=== PATIENT | female | born 1945 | race Caucasian/White ===

== ENCOUNTER 2018-08-27 15:43 | Observation (INO) ==
--- NOTE | 2018-08-27 11:32 | EKG Report ---
Test Performed on : 08/27/2018 11:23:50 AM Test Reason : WEAKNESS Blood Pressure : / mmHG Vent. Rate : 084 BPM Atrial Rate : 084 BPM P-R Int : 158 ms QRS Dur : 068 ms QT Int : 394 ms P-R-T Axes : 023 -24 010 degrees QTc Int : 465 ms Normal sinus rhythm. Nonspecific ST and T wave abnormality Abnormal ECG When compared with ECG of 12-AUG-2017 16:55, QT has shortened Unconfirmed Result
[2018-08-27 11:46] LABS: BASO# 0.03 X1000 (0.0-0.2); BASO% 0.4 % (0.0-0.8); EOS# 0.23 X1000 (0.0-0.7); EOS% 2.7 % (0.0-10.0); HEMATOCRIT 41.8 % (37.0-47.0); HEMOGLOBIN 13.7 g/dL (12.0-16.0); IMM GRAN# 0.02 X1000 (0.0-0.04); IMM GRAN% 0.2 % (0.0-0.5); LYMPH% 35.7 % (20.5-51.1); MCH 29.1 PG (27-31); MCHC 32.8 g/dL (33-37); MCV 88.7 FL (81-99); MONO# 0.56 X1000 (0.11-0.59); MONO% 6.7 % (1.7-9.3); MPV 9.7 FL (7.4-10.4); NEUT# 4.56 X1000 (1.4-6.5); NEUT% 54.3 % (42.2-75.2); PLT 272 X1000 (130-400); RBC 4.71 XMIL (4.2-5.4); RDW 13.8 % (11.5-14.5)
[2018-08-27 11:54] LABS: INR 0.96; PROTIME 13.6 Seconds (11.0-16.0)
[2018-08-27 11:55] LABS: PTT 25.4 Seconds (22.3-41.8)
[2018-08-27 12:01] LABS: AGAP 13; ALB/GLOB RATIO 1.5; ALBUMIN 4.3 g/dL (3.5-5.0); ALKALINE PHOSPHATASE 99 U/L (32-104); BUN 13 mg/dL (8-22); CALCIUM 9.4 mg/dL (8.8-10.2); CHLORIDE 100 mmol/L (98-107); CK PROFILE 42 U/L (24-173); COSMO 281; CREATININE 0.8 mg/dL (0.5-0.9); ESTIMATED GFR > 60; GLUCOSE 154 mg/dL (70-104); GOT 36 U/L (10-30); GPT 40 U/L (10-36); POTASSIUM 4.7 mmol/L (3.5-5.1); SODIUM 139 mmol/L (136-145); TCO2 26 mmol/L (25-35); TOTAL BILIRUBIN 0.38 mg/dL (0.20-1.00); TOTAL PROTEIN 7.1 g/dL (6.3-8.3)
--- NOTE | 2018-08-27 12:08 | Diag Imaging Result Doc PS360 ---
EXAM: CHEST-PORTABLE 08/27/2018 HISTORY: WEAKNESS TECHNIQUE: AP portable at 1207 COMMENT: There is no evidence of acute cardiac or pulmonary disease and compared to 05/06/2018 there has been no significant change. IMPRESSION: Stable chest. Electronically signed by Norris Gallardo 08/27/2018 12:05 PM
--- NOTE | 2018-08-27 12:09 | Diag Imaging Result Doc PS360 ---
CT HEAD W/O CONTRAST - 08/27/2018 INDICATION: Head injury COMPARISON: 09/29/2014 FINDINGS: There is stable trace periventricular white matter chronic microvascular disease. The ventricles and sulci are normal in size and contour. No intracranial mass or hemorrhage. The skull is intact. The sinuses mastoids and middle ears are clear. IMPRESSION: No acute disease or change from prior. This exam was performed using automated exposure control, adjustment of mA or kV according to patient size, and/or use of iterative reconstruction technique Electronically signed by Germain Bledsoe 08/27/2018 12:07 PM
[2018-08-27 12:18] LABS: URINE SOURCE CLEAN CATCH
[2018-08-27 12:21] LABS: BILIRUBIN URINE NEGATIVE (NEGATIVE); BLOOD URINE SMALL (NEGATIVE); COLOR YELLOW; GLUCOSE URINE NEGATIVE (NEGATIVE); KETONE URINE TRACE mg/dL (NEGATIVE); LEUKOCYTES URINE LARGE (NEGATIVE); NITRITE URINE NEGATIVE (NEGATIVE); PH URINE 5.5; PROTEIN URINE 50 mg/dL (NEGATIVE); SP GRAVITY URINE 1.028; TURBIDITY URINE HAZY (CLEAR); UROBILINOGEN URINE NORMAL (NORMAL)
[2018-08-27 12:23] LABS: UR EPITHELIAL CELLS <10 /HPF (<10); URINE BACTERIA 2+ /HPF; URINE WBC TNTC /HPF (<10)
--- NOTE | 2018-08-27 14:00 | PROVIDER DOCUMENTATION ---
This chart was entered by Mile Soto Scribe, acting as scribe for Lyndon Centeno MD. HPI-General Adult - General Chief Complaint: Weakness Stated Complaint: STROKE-LIKE SYMPTOMS Time Seen by Provider: 08/27/18 11:36 Source: patient, family () Allergies/Adverse Reactions: Patient Allergies Allergy/AdvReac Type Severity Reaction Status Date / Time Antihistamines - Alkylamine Allergy Mild FLUSHING Verified 08/27/18 13:52 codeine [Codeine] Allergy Mild Unknown Verified 08/27/18 13:52 Home Medications: Home Medication List Medication Instructions Recorded Confirmed Last Taken Type Nitroglycerin S.l. [Nitroglycerin] 0.3 mg SL PRN PRN 10/02/12 08/12/17 3 Months Ago History ~05/12/17 ENALApril [Vasotec] 10 mg PO BID #60 tablet 01/24/17 08/12/17 08/12/17 Rx Ergocalciferol (Vitamin D2) 50,000 unit PO Q7D #4 capsule 01/24/17 08/12/17 Unknown Rx [Vitamin D] SIMVAstatin [Zocor] 40 mg PO QHS #30 tablet 01/24/17 08/12/17 1 Day Ago Rx ~08/11/17 Aripiprazole [Abilify] 5 mg PO QAM 08/12/17 08/12/17 08/12/17 History Gabapentin [Neurontin] 300 mg PO TID 08/12/17 08/12/17 08/12/17 History Ibuprofen 800 mg PO BID PRN 08/12/17 08/12/17 08/12/17 History Losartan [Cozaar] 50 mg PO DAILY 08/12/17 08/12/17 08/12/17 History Metformin E.r. [Glucophage Xr] 850 mg PO BID 08/12/17 08/12/17 08/12/17 History Metoprolol [Lopressor] 25 mg PO DAILY 08/12/17 08/12/17 08/12/17 History Pantoprazole [Protonix] 40 mg PO DAILY@0700 08/12/17 08/12/17 08/12/17 History Prazosin [Minipress] 1 mg PO QHS 08/12/17 08/12/17 08/11/17 History Sulfamethoxazole/Trimethoprim 1 each PO BID 08/12/17 08/12/17 08/12/17 History [Bactrim Ds Tablet] - History of Present Illness -Gen Adult Nature of Presenting Problems: 71 yom presents to the ed with 2 days of weakness per pt and family. pt sts rt side is weak. pt is a/o x3 on exam. pt is out of TPA window de to time of cva onset 2 days prior Location of Pain/Injury: reports: upper extremity (weakness), lower extremity ( weakness) Quality of Pain: reports: none Onset/Duration: reports: 2 days ago Timing: reports: still present Context/Activities at Onset: reports: light activity Modifying Factors: improves with: nothing Associated Symptoms: reports: fatigue, genitourinary problems (dysuria), weakness (rt side). denies: back/neck pain, chest pain, diaphoresis, diarrhea, dizziness, fever/chills, headaches, nausea, shortness of breath, syncope, vomiting, trouble walking Similar Symptoms Previously?: No Recently seen or treated by another doctor?: No Review of Systems - Adult - REVIEW OF SYSTEMS - ADULT Constitutional: reports: fatique. denies: chills, fever Eyes: reports: no symptoms reported Ears, Nose, Mouth & Throat: reports: no symptoms reported Cardiovascular: denies: chest pain, palpitations Respiratory: denies: cough, shortness of breath, wheezing Gastrointestinal: denies: abdominal pain, diarrhea, nausea, vomiting Genitourinary: reports: see HPI, dysuria, frequent UTI's. denies: flank pain Musculoskeletal: reports: see HPI, muscle weakness Integumentary: reports: no symptoms reported Neurological: reports: see HPI, numbness (rt hand). denies: ataxia, dizziness/ vertigo, headache/migraines, paresthesia, seizure, slurred speech, syncope, tremors Psychiatric: reports: no symptoms reported Endocrine: reports: no symptoms reported Hematologic/Lymphatic: reports: no symptoms reported Allergic/Immunologic: reports: no symptoms reported All Other Systems: Reviewed and Negative Past History - Adult - PAST MEDICAL HISTORY-ADULT Review of Records: reports: Old Records Reviewed, Nursing Assessment Review, Medications Reviewed, Social history reviewed & non-contributory. Major Childhood Illnesses: reports: denies history Cardiovascular: reports: CAD, HTN, hyperlipidemia Respiratory: reports: denies history Gastrointestinal: reports: GERD Obstetrical/Gynecological: reports: denies history Genitourinary: reports: denies history Musculoskeletal: reports: denies history Neurological: reports: CVA Psychiatric: reports: depression Endocrine/Immune: reports: Diabetes Other Conditions: reports: denies history - PRIOR SURGERIES/PROCEDURES Surgical/Procedure History: reports: cholecystectomy, hysterectomy, BTL, orthopedic (extremity) (ankle (left)) - IMMUNIZATION STATUS Childhood Immunizations: See Nurse Assessment Flu Vaccine: See Nurse Assessment - FAMILY HISTORY Family History: reviewed, not pertinent - SOCIAL HISTORY Smoking: quit greater than 1 year Substance Use: denies Living Situation: family Physical Exam-General - PHYSICAL EXAM-ADULT Initial Vital Signs Reviewed: Yes - CONSTITUTIONAL General Appearance: appears well, alert, no apparent distress, obese - EYES Eyes: PERRL/EOMI, pink conjunctivae - HEAD, EARS, NOSE, MOUTH & THROAT HENMT: moist mucous membranes, normal ENT inspection - NECK Neck: non-tender, full range of motion, supple, normal inspection - RESPIRATORY Respiratory: chest non-tender, lungs clear, normal breath sounds - CARDIOVASCULAR Cardiovascular: normal peripheral pulses, regular rate, rhythm - GASTROINTESTINAL (ABDOMEN) Abdominal Exam: normal bowel sounds, non tender, soft - LYMPHATIC Lymphatic: no adenopathy - MUSCULOSKELETAL Back Exam: normal inspection, no CVA tenderness, no vertebral tenderness Extremity: non-tender, normal gait, normal inspection. 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 negative: aphasia, sensory deficit - PSYCHIATRIC Psych/Mental Status: normal mood/affect, normal thought content, normal thought process, oriented x 3 Progress - PLAN OF CARE/RESULTS Progress/Plan/Lab Results: Vital Signs - 8 hr 08/27/18 11:19 Temperature 97.3 F L Pulse Rate 84 Respiratory Rate 18 Blood Pressure 171/97 O2 Sat by Pulse Oximetry 99 Laboratory Results - last 24 hr 08/27/18 08/27/18 08/27/18 11:27 11:27 11:27 WBC 8.40 RBC 4.71 Hgb 13.7 Hct 41.8 MCV 88.7 MCH 29.1 MCHC 32.8 L RDW Std Deviation 13.8 Plt Count 272 MPV 9.7 Immature Gran % (Auto) 0.2 Neut % (Auto) 54.3 Lymph % (Auto) 35.7 [place] % (Auto) 6.7 Eos % (Auto) 2.7 Baso % (Auto) 0.4 Immature Gran # (Auto) 0.02 Neut # (Auto) 4.56 Lymph # (Auto) 3.00 [place] # (Auto) 0.56 Eos # (Auto) 0.23 Baso # (Auto) 0.03 PT 13.6 INR 0.96 PTT (Actin FS) 25.4 Sodium 139 Potassium 4.7 Chloride 100 Carbon Dioxide 26 Anion Gap 13 BUN 13 Creatinine 0.8 Estimated GFR/1.73 m2 > 60 BUN/Creatinine Ratio 16 Glucose 154 H Calculated Osmolality 281 Calcium 9.4 Total Bilirubin 0.38 AST 36 H ALT 40 H Alkaline Phosphatase 99 Creatine Kinase 42 Troponin T Total Protein 7.1 Albumin 4.3 Globulin 2.8 Albumin/Globulin Ratio 1.5 Urine Source Urine Color Urine Turbidity Urine pH Ur Specific [place] Urine Protein Ur Glucose (Stick) Ur Ketones (Stick) Urine Blood Urine Nitrite Urine Bilirubin Urobilinogen Dipstick Urine Leukocytes Urine WBC (Auto) Urine RBC (Auto) U Epithel Cells (Auto) Urine Bacteria (Auto) 08/27/18 08/27/18 11:27 11:43 WBC RBC Hgb Hct MCV MCH MCHC RDW Std Deviation Plt Count MPV Immature Gran % (Auto) Neut % (Auto) Lymph % (Auto) [place] % (Auto) Eos % (Auto) Baso % (Auto) Immature Gran # (Auto) Neut # (Auto) Lymph # (Auto) [place] # (Auto) Eos # (Auto) Baso # (Auto) PT INR PTT (Actin FS) Sodium Potassium Chloride Carbon Dioxide Anion Gap BUN Creatinine Estimated GFR/1.73 m2 BUN/Creatinine Ratio Glucose Calculated Osmolality Calcium Total Bilirubin AST ALT Alkaline Phosphatase Creatine Kinase Troponin T < 0.010 Total Protein Albumin Globulin Albumin/Globulin Ratio Urine Source CLEAN CATCH Urine Color YELLOW Urine Turbidity HAZY Urine pH 5.5 Ur Specific [place] 1.028 Urine Protein 50 A Ur Glucose (Stick) NEGATIVE Ur Ketones (Stick) TRACE A Urine Blood SMALL A Urine Nitrite NEGATIVE Urine Bilirubin NEGATIVE Urobilinogen Dipstick NORMAL Urine Leukocytes LARGE A Urine WBC (Auto) TNTC A Urine RBC (Auto) 10-20 A U Epithel Cells (Auto) <10 Urine Bacteria (Auto) 2+ Orders Category Date Time Status Cardiac Monitoring DIRECTED Care 08/27/18 11:26 Active Oxygen Therapy- ED Nursing DIRECTED Care 08/27/18 11:26 Active Saline Loc NOW Care 08/27/18 11:26 Active CHEST-PORTABLE [RAD] Stat Exams 08/27/18 11:[address] HEAD W/O CONTRAST [CT] Stat Exams 08/27/18 11:26 Completed CBC WITH ELECTRONIC DIFF [HEME] Stat Lab 08/27/18 11:27 Completed CK PROFILE [SP CHEM] Stat Lab 08/27/18 11:27 Completed COMPREHENSIVE METABOLIC PANEL [CHEM] Stat Lab 08/27/18 11:27 Completed PROTIME WITH INR [COAG] Stat Lab 08/27/18 11:27 Completed PTT [COAG] Stat Lab 08/27/18 11:27 Completed TROPONIN T Stat Lab 08/27/18 11:27 Completed URINALYSIS [URINALYSIS] Stat Lab 08/27/18 11:43 Completed Altered Mental Status Stat Oth 08/27/18 11:25 Ordered EKG [EKG] Stat Ther 08/27/18 11:26 Draft Result Diagrams: 08/27/18 11:27 08/27/18 11:27 - REASSESSMENT Reassessment #1 Time Reassessed: 13:53 Status: unchanged - EKG 1 Time of EKG reading by physician:: 11:30 EKG Read and Signed by:: Lyndon Centeno EKG Interpretation (*Must complete 3 of following elements*): Abnormal Rate: 84 Rhythm: nsr Ovid: normal QRS: normal [place] Interval: normal Comments: nonspecific ST and T wave abnormality - XRAY 1 XRAY: Bilateral XRAY Study: Chest Impression: See EMR Report (EXAM: CHEST-PORTABLE 08/27/2018 HISTORY: WEAKNESS TECHNIQUE: AP portable at 1207 COMMENT: There is no evidence of acute cardiac or pulmonary disease and compared to 05/06/2018 there has been no significant change. IMPRESSION: Stable chest. Electronically signed by Norris Gallardo 08/27/2018 12:05 PM 08/27/18 1205 Interpreting Physician: Norris Gallardo MD Dictated Date/Time: 08/27/18 1205 cc: Lyndon Centeno MD; Gopi Bell) - CT/MRI 1 CT Study: Head Impression: See EMR Report (CT HEAD W/O CONTRAST - 08/27/2018 INDICATION: Head injury COMPARISON: 09/29/2014 FINDINGS: There is stable trace periventricular white matter chronic microvascular disease. The ventricles and sulci are normal in size and contour. No intracranial mass or hemorrhage. The skull is intact. The sinuses mastoids and middle ears are clear. IMPRESSION: No acute disease or change from prior. This exam was performed using automated exposure control, adjustment of mA or kV according to patient size, and/or use of iterative reconstruction technique Electronically signed by Germain Bledsoe 08/27/2018 12:07 PM 08/27/18 1207 Interpreting Physician: Germain Bledsoe MD Dictated Date/Time: 08/27/18 1205 cc: Lyndon Centeno MD; Gopi Bell) - CONSULTS/PCP/HOSPITALIST Notification #1 *Consult/PCP/Hospitalist*: hospitalist dr sanderson Time Discussed: 13:49 Reason/Comments: cva/uti Consult Disposition: Admit Departure - Departure Date of Disposition Decision: 08/27/18 Time of Disposition Decision: 13:53 DIAGNOSIS: Ischemic stroke UTI (urinary tract infection) Qualifiers: Urinary tract infection type: site unspecified Hematuria presence: without hematuria Qualified Code(s): N39.0 - Urinary tract infection, site not specified Disposition: ADMITTED INPATIENT 09 Certified Medical Emergency: Emergent Condition: Stable Additional Freetext Instructions: ED Follow Up Instructions: You have been treated by a care provider in the Emergency Department. These instructions are being provided to you so you can have an understanding of how to care for yourself upon discharge. Upon discharge from the Emergency Department, you are responsible for making arrangements for follow-up care by a physician of your choice. Take all prescribed medications as directed. Return to the Emergency Department immediately for any new or worsening symptoms. You may call the Physician Referral phone number at [phone] to obtain a list of Physicians who are taking new patients. Referrals and Follow-Ups: Gopi Bell [Primary Care Provider] - - Critical Care Note This patient required my direct & personal management of CC.: Yes Total Time (mins): 37 Critical Care Statement: This patient required my direct personal management to treat or rule out processes, the absence of which, could potentiallly result in sudden, clinically significant life or limb threatening deterioration. Attestation - Physician/ TAMRA Attestation Patient care was provided by Advanced Practice Provider:: No The physician spent face to face time with patient:: Yes Advanced Practice Provider documentation review:: Supervising physician onsite and consulted in the evaluation and care of this patient. The physician did have a face to face encounter with the patient. This chart was documented by the indicated scribe, (Mile Soto Scribe) and accurately reflects the services I performed and decisions made by me, Lyndon Centeno MD, as attested by the provider's signature.
[~2018-08-27 15:43] MED LIST: NS 500 ML IV ONE; ROCEPHIN 1 GM in NS 50 ML IV ONE
[2018-08-27] MEDS ORDERED: NS 1,000 ML IV SCH (15:47)
--- NOTE | 2018-08-27 16:13 | Diag Imaging Result Doc PS360 ---
MRI BRAIN W/WO CONTRAST - 08/27/2018 INDICATION: stroke like symptoms COMPARISON: None FINDINGS: There is no area of restricted diffusion. The ventricles and sulci are normal in size and contour. No intracranial mass or hemorrhage. No area of abnormal contrast enhancement. Midline structures including the optic chiasm and pituitary are normal. IMPRESSION: Negative exam. Electronically signed by Germain Bledsoe 08/27/2018 4:11 PM
--- NOTE | 2018-08-27 16:14 | Diag Imaging Result Doc PS360 ---
MRA BRAIN W/O CONTRAST - 08/27/2018 INDICATION: stroke like symptoms TECHNIQUE: Noncontrast [id number] technique was used COMPARISON: None FINDINGS: The internal carotid arteries are normal bilaterally. The anterior and middle cerebral arteries are normal. The vertebral and basilar arteries are normal. The posterior cerebral arteries are normal. No aneurysm or stenosis. IMPRESSION: Negative exam. Electronically signed by Germain Bledsoe 08/27/2018 4:12 PM
[2018-08-27] MEDS ORDERED: GLUCOPHAGE XR PO SCH (17:00)
[2018-08-27] MEDS: ZOFRAN IV PRN (20:30)
[2018-08-27] MEDS: TYLENOL PO PRN (20:30)
[2018-08-27] MEDS: VASOTEC PO SCH (20:30)
[2018-08-27] MEDS: GLUCOPHAGE PO SCH (20:30)
--- NOTE | 2018-08-27 20:51 | HISTORY AND PHYSICAL ---
PRIMARY CARE PROVIDER: CINDY Montanez CHIEF COMPLAINT: Right-sided weakness. Right facial coolness and droop. HISTORY OF PRESENT ILLNESS: Ms. Alejandrina Valiente is a 73-year-old female with a medical history of depressed psychosis, anxiety disorder, diabetes mellitus type 2, questionable atrial fibrillation or SVT, irritable bowel syndrome with bowel incontinence, and hypertension. She states that this past Friday, which is six days now today, that she has been having some more symptoms of being a little more drowsy. Her right face is cool, feels numb and tingly compared to her left face, and the assessment confirms that as well. She has had blurry vision, weakness in the right arm and leg, and some numbness and tingling on the right arm and leg, which is accurate with assessment as well. She does have psychiatric issues. There is some question as to whether the right side weakness is intentional, given that both the head CT and the MRI/ MRA of the brain are all negative. She most definitely has on the right side of her face coolness, and it is a little more pale than the left side of her face. The left side of her face is warm, almost hot, but pupils are equal and reactive. Could be an autonomic or sympathetic nervous system issue. It is really unclear, so will admit for further workup. PAST MEDICAL HISTORY: 1. Irritable bowel syndrome with bowel incontinence. 2. Palpitations which could be SVT or atrial fibrillation, but she is unclear. She states she does not take anything for it. No blood thinners. 3. Diabetes mellitus type 2. 4. Depression with history of psychosis and suicidal/homicidal ideations back in December 2016. 5. Hypertension. 6. Neuropathy. PAST SURGICAL HISTORY: 1. Bilateral cataracts. 2. Bilateral tubal ligation. 3. Hysterectomy. 4. Cholecystectomy. 5. Left foot bone removed. SOCIAL HISTORY: Smoked 2 packs per day for 1.5 years. Quit 42 years ago. Also quit alcohol 42 years ago. No illicit drug use. She lives at home with her of 38 years. FAMILY HISTORY: Mother had brain aneurysm and heart disease. Siblings all had heart disease and hypertension. ALLERGIES: Antihistamines and codeine. HOME MEDICATIONS: 1. Abilify 5 mg p.o. daily. 2. Metformin 850 p.o. t.i.d. 3. Vasotec 10 mg p.o. twice daily. 4. There are several antihypertensives and other medications that she was unable afford at home. These are vitamin D2, Neurontin, Cozaar, Lopressor, Protonix, Minipress, and Zocor. She decided to stop all these medications on her own. REVIEW OF SYSTEMS: A 14-point review of systems was completed, and all were negative except for those mentioned above in the HPI. PHYSICAL EXAMINATION: VITAL SIGNS: Temperature 98.1, heart rate 82, respiratory rate 16, blood pressure 142/88, O2 saturation 98% on room air. She is 4 feet 11 inches tall, 148 pounds. BMI is 29.9. GENERAL: Ms. Alejandrina Valiente is a 73-year-old female. She is in no acute distress. She is able to answer questions appropriately. HEENT: Atraumatic, normocephalic. Pupils equal, round, and reactive to light. Extraocular movements intact. Mucous membranes are moist. She has heat on the left side of the face and it is red. She has paleness on the right side of her face, and it is cool. There is less structure to the right cheekbone versus the left cheekbone, but strength is equal. She has numbness on her right face. NECK: Trachea midline. CARDIOVASCULAR: S1 and S2, regular rate and rhythm. No rubs, gallops or murmurs. Trace lower extremity edema, +2 dorsalis and radial pulses. Negative for JVD and carotid bruits. PULMONARY: Clear to auscultate. Bilateral breath sounds. No accessory muscle use or work of breathing noted. GI: Soft, nontender, nondistended. Positive bowel sounds x4. EXTREMITIES: About 4/5 strength in the right upper and lower extremities with numbness and tingling in the right hand, 5/5 in the left upper and lower. Full range of motion. NEUROLOGIC: Alert and oriented x3. Follows commands. Sensory: Numbness in the right hand and right face. SKIN: Warm, dry and intact. Left face red. Right face pale. The left is warm. The right is cool. It only affects her face. LABORATORY DATA: White blood cells 8000, hemoglobin 13, hematocrit 41, platelet count 272. INR is 0.96. PTT is 25.4. Sodium 139, potassium 4.7, BUN 13, creatinine 0.8, glucose 154. Calcium 9.4, bilirubin 0.38, AST 36, ALT 40. CK 42, troponin less than 0.01. Urinalysis: 50 protein, trace leukocyte esterase, trace ketones, small blood, large leukocytes, [id number] white blood cells, 10-20 red blood cells, 2+ bacteria. IMAGING: Chest x-ray: Nothing acute. Head CT: No acute finding. Brain MRA: No acute findings. Brain MRI with and without contrast: Also negative exam. EKG: Normal sinus rhythm. No ST changes. The rate is 84. The QTc is 465. ASSESSMENT/PLAN: 1. Stroke-like symptoms, although imaging is negative, both CT and MRI/MRA. Questionable if this is intentional weakness on the right, although the right-sided face being pale and cool compared to the left side is definitely a change. She has blurred vision with this as well. Could be an autonomic nervous system or sympathetic nervous system issue such as Brooks syndrome or Harlequin syndrome. It is really unclear. Will consult neurology for any further recommendations. Will go ahead and finish up the workup for stroke, although it does not appear she has had a stroke. Will get an echocardiogram and a carotid ultrasound. 2. Reports having a history of palpitations or irregular heartbeat in the past, so there is a question of whether there is supraventricular tachycardia or atrial fibrillation in her past. She is not on any blood thinners. She is, however, on Vasotec. 3. Diabetes mellitus type 2. Pattern blood glucoses and sliding-scale insulin. 4. Depression with history of psychosis. Suicidal and homicidal ideations from back in December 2016. She is on Abilify, and we will continue that. 5. Deep venous thrombosis prophylaxis, sequential compression devices. 6. Urinary tract infection. Continue on Rocephin. She has had some complaints of urinary frequency. No burning. White count is normal. Dictated by CINDY Garcia for Cristi Pereyra MD Addendum: Patient seen and examined by myself. Agree with CINDY note. It reflects my assessment and plan. Patient is being admitted to hospital for stroke like symptoms. Will do MRI of brain w/contrast and MRA of brain as well. Neurology will be consulted. Will monitor patient closely. cc: CINDY Garcia MD MTDD
[2018-08-27] MEDS ORDERED: LIPITOR PO SCH (21:00)
[2018-08-28] MEDS: ZOFRAN IV PRN ×2 (03:46→09:10)
[2018-08-28] MEDS: HUMULIN R SUBQ SCH ×2 (05:31→06:32)
[2018-08-28 08:10] LABS: BASO# 0.03 X1000 (0.0-0.2); BASO% 0.4 % (0.0-0.8); EOS# 0.31 X1000 (0.0-0.7); EOS% 4.4 % (0.0-10.0); HEMATOCRIT 40.4 % (37.0-47.0); HEMOGLOBIN 13.1 g/dL (12.0-16.0); LYMPH# 2.37 X1000 (1.2-3.4); LYMPH% 33.6 % (20.5-51.1); MCH 28.8 PG (27-31); MCHC 32.4 g/dL (33-37); MCV 88.8 FL (81-99); MONO# 0.48 X1000 (0.11-0.59); MONO% 6.8 % (1.7-9.3); MPV 9.7 FL (7.4-10.4); NEUT# 3.87 X1000 (1.4-6.5); NEUT% 54.8 % (42.2-75.2); PLT 261 X1000 (130-400); RBC 4.55 XMIL (4.2-5.4); RDW 13.7 % (11.5-14.5); WBC 7.06 X1000 (4.8-10.8)
[2018-08-28 08:17] LABS: INR 0.97; PROTIME 13.7 Seconds (11.0-16.0)
[2018-08-28 08:18] LABS: PTT 25.2 Seconds (22.3-41.8)
[2018-08-28 08:41] LABS: AGAP 11; ALB/GLOB RATIO 1.2; ALBUMIN 3.8 g/dL (3.5-5.0); ALKALINE PHOSPHATASE 90 U/L (32-104); BUN 10 mg/dL (8-22); CALCIUM 8.7 mg/dL (8.8-10.2); CHLORIDE 103 mmol/L (98-107); COSMO 280; CREATININE 0.8 mg/dL (0.5-0.9); ESTIMATED GFR > 60; GLUCOSE 123 mg/dL (70-104); GOT 34 U/L (10-30); GPT 36 U/L (10-36); POTASSIUM 4.2 mmol/L (3.5-5.1); SODIUM 140 mmol/L (136-145); TCO2 26 mmol/L (25-35); TOTAL BILIRUBIN 0.29 mg/dL (0.20-1.00); TOTAL PROTEIN 6.9 g/dL (6.3-8.3)
[2018-08-28] MEDS ORDERED: ROCEPHIN 1 GM in NS 50 ML IV SCH (09:00)
[2018-08-28] MEDS ORDERED: ASPIRIN PO SCH (09:00)
[2018-08-28] MEDS ORDERED: ABILIFY PO SCH (09:00)
[2018-08-28] MEDS: TYLENOL PO PRN (09:07)
[2018-08-28] MEDS: VASOTEC PO SCH (09:07)
[2018-08-28] MEDS: GLUCOPHAGE PO SCH (09:07)
[2018-08-28 09:59] LABS: HEMOGLOBIN A1C 7.5 % (4.8-6.0)
[2018-08-28 10:51] VITALS: BP 177/79
--- NOTE | 2018-08-28 18:03 | CONSULTATION ---
DATE OF CONSULTATION: 08/28/2018 Ms. Valiente is 73 years old. History from the patient and her attentive and from review of the available hospital record is that she noticed a sense of sluggishness and generally feeling bad without focal problems about a week ago. She went to bed and rested a bit and then felt a little better. When she got up, noticed she seemed pale and patient noticed the right side of her face seemed to be drooped compared to the left. She believes there was heaviness in the right arm. There was never paralysis. She was never unable to use her arm. She has chronic gait difficulty which she believes is due to diabetic neuropathy bothering her right leg more than the left and she did not notice that to be any different from baseline. She did not have trouble understanding what said. Her speech was not affected. She did not notice any new vision disturbance, but believes her vision may have been a little more blurred globally than baseline. She developed headache about a week ago and that has persisted. reports the right facial droop was less prominent 5 days ago and has persisted unchanged since then. There is no history of previous diagnosed stroke, seizure, serious head injury, other neurologic event. She had an episode of syncope 10 or 12 years ago and cardiac workup was undertaken then. She has not had more recent syncope or altered awareness. Workup here includes noncontrast CT showing nothing remarkable. Brain MRI done with and without contrast was unremarkable showing typical age-related ischemic change but nothing focal or acute and no bleeding. Brain MRA was normal. Computer shows November 2017 carotid ultrasound showed no significant stenosis bilaterally. She has been afebrile. Systolic blood pressures have ranged 120s to 170s. Heart rate has ranged from 60 to 88 here. There is reported past history of diabetes mellitus, hypertension, anxiety, depression. reports she has a box full of medicines and she does not have supervision with medicine. As I approached the bedside, she had 4 tablets in her hand which she had taken from her purse. She told me she was going to take these things "for diarrhea." I advised her not to take home medicines, not to take medicine from her purse, to take only medicine dispensed by hospital staff. The computer record shows only 3 home medicines including aripoprazole 5 mg b.i.d., enalapril 10 mg b.i.d., metformin ER 850 mg t.i.d. 's report is that she may have more than these 3 medicines. On exam, she is awake, alert, attentive. She seems appropriate. Speech is not dysarthric. Language function is intact on bedside testing. She named objects and parts of objects easily. She followed commands requiring digit distinction and right/left distinction. Remote memory is good. Recent memory is fair. She named the president. She could not discuss recent news. She was oriented. I did not test her cognitive function more thoroughly because of the distractions and trouble keeping her attention with commotion on the next bed and in the hallway. Head is unremarkable. Neck is supple. There is no meningismus. She has full visual cano tested grossly by confrontational finger counting. Extraocular movements are full laterally. She has slightly diminished upgaze typical for age. Facial motility seems symmetric now. The right nasolabial fold is actually a little bit more prominent than the left. Upper and lower facial motility are symmetric. There is no ptosis. Gag is intact. Tongue is midline. She can hear. Shoulder shrug is good bilaterally. Pupils are round and react to light and both have slight postsurgical appearance. There is no afferent pupillary defect and there is no significant anisocoria. She reports equal pinprick and light touch appreciation over the face now. She reports diminished pinprick appreciation in a stocking pattern bilaterally. Proprioception is good at the great toe MTP joint bilaterally. Reflexes are 2+ at the left knee, inconsistently 2+ at the right knee, 2+ at the left ankle, 1+ at the right ankle. Plantar response is silent bilaterally. She did well on [id number] testing bilaterally. She did well on [id number]-pm-[id number] testing bilaterally. She has good power symmetrically in the limbs. I did not test her gait. IMPRESSION: 1. Reported recent right facial droop and question of right arm heaviness. In light of her age and risk factors, this is worrisome for ischemic neurologic event but I cannot find a definite deficit now, although patient and report symptoms are present now. Negative MRI is reassuring. I do not think we need further workup right now. 2. Cognitive impairment. Cholinesterase inhibitor trial might be considered, but I would first try to better evaluate her home medication list and make sure she is not taking anything of concern. Also, encouraged her to allow close supervision of her home medicines. 3. Report of asymmetric temperature across the face. I do not find asymmetric facial sweating or any other findings for Brooks syndrome now. Thanks for asking Neurology to see Ms. Valiente. I will be glad to see her again inpatient or outpatient, if needed. cc: MD ANTWON Valencia III
--- NOTE | 2018-08-28 22:24 | ECHO REPORT ---
ORDER DATE: 08/28/2018 INDICATION: CVA symptoms. FINDINGS: 1. The right atrium appears normal in size. 2. Trace tricuspid regurgitation. RV systolic pressure of 27. 3. Normal RV size and systolic function. 4. No significant pulmonic insufficiency. 5. Normal left atrial size with a dimension of 3 cm. 6. No mitral prolapse. Mild mitral regurgitation. 7. Normal LV size, end-diastolic dimension of around 3 cm. Mild left ventricular hypertrophy with a posterior and interventricular septal wall thickness 1.2 cm each. Normal LV systolic function. The estimated EF is 70% with normal wall motion. 8. Aortic valve opens well. It is trileaflet. No evidence of stenosis or insufficiency. 9. The aorta appears normal in visualized segments. 10. No pericardial effusion is identified. cc: MD Irina Davis CRNP
--- NOTE | 2018-08-29 12:44 | DISCHARGE SUMMARY ---
ADMISSION DATE: 08/27/2018 DISCHARGE DATE: 08/28/2018 CONSULTATIONS: None. PERTINENT PROCEDURES: 1. Head CT. No acute disease or change from prior. 2. Brain MRI, negative exam. 3. Brain MRA, negative exam. 4. Echocardiogram still pending. 5. Carotid ultrasound still pending. DISCHARGE DIAGNOSES: 1. Stroke-like symptoms, although imaging was negative. Questionable if intentional weakness on the right, although the right side of the face had been being pale and cool, compared to the left side, there was definitely a change. She has had some blurry vision as well. Could be autonomic nervous system or sympathetic nervous system issues such as Brooks syndrome or Harlequin syndrome, it is really unclear. We did consult Neurology. However , after negative imaging, the patient would like to be discharged home to follow up with her primary care provider and go over her echo and carotid results, and will be discharged back home. 2. Palpitations and irregular heartbeat in the past. There was a question of SVT or atrial fibrillation in her past. She is not on any blood thinners. However, she is on Vasotec. We will continue that. 3. Diabetes mellitus type 2. Continue home regimen. 4. Depression with a history of psychosis, suicidal and homicidal ideations back in December 2016. She is on Abilify, that was continued. 5. Urinary tract infection on Rocephin. She has some complaints of urinary frequency but no burning. White count was normal. HOSPITAL COURSE: Briefly, Ms. Valiente is a 73-year-old female with a medical history of depression, psychosis, anxiety disorder, diabetes mellitus type 2, questionable atrial fibrillation or SVT, irritable bowel syndrome with bowel incontinence, and hypertension. She states that this past Friday, which is 6 days prior, that she had been having some more symptoms of being a little more drowsy. Her right side of the face was cool and felt numb and tingly compared to her left face and the assessment at that time confirmed that with a admitting [employer]. She also reported blurry vision, and weakness in the right arm and leg and some numbness and tingling in the right arm and leg, which is accurate assessment as well. She denied any psychiatric issues. There was some question of whether the right-sided weakness was intentional given both the head CT, MRI and MRA of the brain were all negative, so she was admitted for further evaluation with neuro, echo and carotid Dopplers. However, after the negative imaging, the patient has decided to be discharged home and follow up with her regular PCP to go over her results in 1 week. VITAL SIGNS: At time of her discharge, temperature is 97.9 degrees, heart rate 70, respirations 17, blood pressure 167/84, O2 is 97% on room air. DISCHARGE DIET: Diabetic. DISCHARGE MEDICATIONS: 1. Abilify 5 mg p.o. b.i.d. 2. Glucophage XR 850 mg p.o. t.i.d. 3. Aspirin 81 mg p.o. daily. 4. Vasotec 10 mg p.o. b.i.d. DISCHARGE DISPOSITION: Ms. Valiente is being discharged back home with self care. FOLLOWUP: She is to follow up with her primary care provider, Gopi Bell, to discuss the results of her echocardiogram and carotid Doppler. She can return to the ED or call 911 for any worsening of symptoms. Dictated by CINDY Stone for Cristi Pereyra MD Addendum: Patient seen and examined by myself. Agree with CINDY note. It reflects my assessment and plan. Patient is being discharged in stable condition. Will be seen by her primary care doctor in a week. cc: MD Gopi Dawn CRNP MTDD
== END 2018-08-28 17:13 | disposition home or self-care (01) ==
LOC: DIRADM 15:43 → EDIPHOLD 16:29 → 3N 18:45 → DIRADM 18:46 → UNDODISIN 08-28 17:13
PROVIDERS: ADMIT Internal Medicine; ATTEND Family Medicine
CPT/HCPCS: 70450; 70544; 70553; 71010; 71045; 80053; 80061; 81001; 82550; 82948; 83036; 83721; 84484; 85025; 85610; 85730; 92523; 93005; 93306; 93880; 94761; 96374; 97116; 97162; 99285; A9270; A9579; J0696; J2405; J7030; J7040; XXXXX

== ENCOUNTER 2019-03-25 21:13 | Observation (INO) ==
--- NOTE | 2019-03-25 21:41 | PROVIDER DOCUMENTATION ---
HPI-General Adult - General Chief Complaint: Abnormal Lab[s] Stated Complaint: BLOOD TOO THIN Time Seen by Provider: 03/25/19 21:29 Source: patient Allergies/Adverse Reactions: Patient Allergies Allergy/AdvReac Type Severity Reaction Status Date / Time Antihistamines - Alkylamine Allergy Mild FLUSHING Verified 02/20/19 11:16 codeine [Codeine] Allergy Mild Unknown Verified 02/20/19 11:16 Home Medications: Home Medication List Medication Instructions Recorded Confirmed Last Taken Type ENALApril [Vasotec] 10 mg PO BID #60 tablet 01/24/17 08/27/18 08/27/18 07:00 Rx Aripiprazole [Abilify] 5 mg PO BID 08/12/17 08/27/18 08/27/18 07:00 History Metformin E.r. [Glucophage Xr] 850 mg PO TID 08/12/17 08/27/18 08/27/18 12:00 History Aspirin 81 mg PO DAILY chewtab 08/28/18 Unknown Rx Gabapentin [Neurontin] 300 mg PO TID 08/28/18 08/28/18 Unknown History Losartan [Cozaar] 50 mg PO DAILY 08/28/18 08/28/18 Unknown History Metoprolol [Lopressor] 25 mg PO DAILY 08/28/18 08/28/18 Unknown History Pantoprazole [Protonix] 40 mg PO DAILY@0700 08/28/18 08/28/18 Unknown History Prazosin [Minipress] 1 mg PO QHS 08/28/18 08/28/18 Unknown History SIMVAstatin [Zocor] 40 mg PO QHS 08/28/18 08/28/18 Unknown History Hydrocodone/APAP 5 mg/325 mg 1 ea PO Q6H PRN PRN #14 tab 02/20/19 Unknown Rx [[place]-5] - History of Present Illness -Gen Adult Nature of Presenting Problems: 73yof present to ER with c/o abnormal INR. Pt states home health janet labs today and they called her tonight at home and instructed her to come to ER. Pt denies any s/s of bleeding. Pt reports some generalized weakness. Location of Pain/Injury: reports: none Associated Symptoms: reports: weakness. denies: chest pain, diaphoresis, dizziness, fever/chills, nausea, shortness of breath, vomiting Review of Systems - Adult - REVIEW OF SYSTEMS - ADULT Constitutional: reports: no symptoms reported Eyes: reports: no symptoms reported Ears, Nose, Mouth & Throat: reports: no symptoms reported Cardiovascular: reports: no symptoms reported. denies: chest pain Respiratory: reports: no symptoms reported. denies: hemoptysis, shortness of breath Gastrointestinal: reports: no symptoms reported. denies: abdominal pain, hematemesis, diarrhea, nausea, rectal bleeding, vomiting Genitourinary: reports: no symptoms reported. denies: hematuria Musculoskeletal: reports: no symptoms reported Integumentary: reports: no symptoms reported Neurological: reports: see HPI, dizziness/vertigo Psychiatric: reports: no symptoms reported Endocrine: reports: no symptoms reported Hematologic/Lymphatic: reports: no symptoms reported Allergic/Immunologic: reports: no symptoms reported All Other Systems: Reviewed and Negative Past History - Adult - PAST MEDICAL HISTORY-ADULT Review of Records: reports: Old Records Reviewed, Nursing Assessment Review, Medications Reviewed, Social history reviewed & non-contributory. Major Childhood Illnesses: reports: denies history Cardiovascular: reports: CAD, HTN, hyperlipidemia Respiratory: reports: denies history Gastrointestinal: reports: GERD Obstetrical/Gynecological: reports: denies history Genitourinary: reports: denies history Musculoskeletal: reports: denies history Neurological: reports: CVA Psychiatric: reports: depression Endocrine/Immune: reports: Diabetes Other Conditions: reports: denies history - PRIOR SURGERIES/PROCEDURES Surgical/Procedure History: reports: cholecystectomy, hysterectomy, BTL, orthopedic (extremity) (ankle (left)) - IMMUNIZATION STATUS Childhood Immunizations: See Nurse Assessment Flu Vaccine: See Nurse Assessment - FAMILY HISTORY Family History: reviewed, not pertinent Physical Exam-General - PHYSICAL EXAM-ADULT Initial Vital Signs Reviewed: Yes - CONSTITUTIONAL General Appearance: appears well, alert, no apparent distress - EYES Eyes: pink conjunctivae - HEAD, EARS, NOSE, MOUTH & THROAT HENMT: moist mucous membranes - NECK Neck: full range of motion, supple, normal inspection - RESPIRATORY Respiratory: lungs clear, normal breath sounds, no respiratory distress, no accessory muscle use - CARDIOVASCULAR Cardiovascular: regular rate, rhythm - GASTROINTESTINAL (ABDOMEN) Abdominal Exam: normal bowel sounds, non tender, soft. negative: distended, guarding, rigid, rebound - MUSCULOSKELETAL Back Exam: normal inspection, no vertebral tenderness Extremity: normal range of motion, normal gait, normal inspection - SKIN Integumentary: normal color, warm/dry. negative: diaphoresis, ecchymosis, erythema, pallor, petechiae, purpura - NEUROLOGIC Neurologic: grossly normal, no motor/sensory deficits - PSYCHIATRIC Psych/Mental Status: normal mood/affect, normal thought content, normal thought process, oriented x 3 Progress - PLAN OF CARE/RESULTS Progress/Plan/Lab Results: Vital Signs - 8 hr 03/25/19 21:16 Temperature 98.0 F Pulse Rate 57 L Respiratory Rate 18 Blood Pressure 128/66 O2 Sat by Pulse Oximetry 95 Orders Category Date Time Status CBC WITH DIFF [HEME] Stat Lab 03/25/19 21:37 Ordered COMPREHENSIVE METABOLIC PANEL [CHEM] Stat Lab 03/25/19 21:37 Uncollected PT [PROTIME WITH INR] [COAG] Stat Lab 03/25/19 21:37 Uncollected PTT [COAG] Stat Lab 03/25/19 21:37 Uncollected Result Diagrams: 03/25/19 20:03 03/25/19 20:03 - REASSESSMENT Reassessment #1 Time Reassessed: 23:05 (discussed pt with Dr Ppo, agrees with tx of Vitamin K PO 10mg and admission) - CONSULTS/PCP/HOSPITALIST Notification #1 *Consult/PCP/Hospitalist*: Dr Arceo Time Discussed: 23:19 Consult Disposition: Will see in ED, Admit Departure - Departure Date of Disposition Decision: 03/25/19 Time of Disposition Decision: 23:19 DIAGNOSIS: Elevated INR Disposition: ADMITTED INPATIENT 09 Certified Medical Emergency: Emergent Condition: Stable Referrals and Follow-Ups: Germain Che Jr, MD [Primary Care Provider] - - Critical Care Note This patient required my direct & personal management of CC.: No Attestation - Physician/ TAMRA Attestation Patient care was provided by Advanced Practice Provider:: Yes Advanced Practice Provider:: Regina Winters Advanced Practice Provider documentation review:: The Mid-level provider documentation, treatment plan and medical decision making was reviewed by the physician who agrees with all treatment and medical decision making by the [facility]. The physician spent face to face time with patient:: No Advanced Practice Provider documentation review:: Supervising physician onsite and consulted in the evaluation and care of this patient. The physician did not have a face to face encounter with the patient.
[2019-03-25 22:10] LABS: BASO# 0.02 X1000 (0.0-0.2); BASO% 0.2 % (0.0-0.8); EOS# 0.23 X1000 (0.0-0.7); EOS% 2.2 % (0.0-10.0); HEMATOCRIT 38.2 % (37.0-47.0); HEMOGLOBIN 12.7 g/dL (12.0-16.0); IMM GRAN# 0.03 X1000 (0.0-0.04); IMM GRAN% 0.3 % (0.0-0.5); LYMPH# 3.12 X1000 (1.2-3.4); LYMPH% 30.2 % (20.5-51.1); MCH 28.3 PG (27-31); MCHC 33.2 g/dL (33-37); MCV 85.3 FL (81-99); MONO# 0.85 X1000 (0.11-0.59); MONO% 8.2 % (1.7-9.3); MPV 8.9 FL (7.4-10.4); NEUT# 6.07 X1000 (1.4-6.5); NEUT% 58.9 % (42.2-75.2); PLT 364 X1000 (130-400); RBC 4.48 XMIL (4.2-5.4); RDW 15.1 % (11.5-14.5); WBC 10.32 X1000 (4.8-10.8)
[2019-03-25 22:38] LABS: AGAP 15; ALB/GLOB RATIO 1.1; ALBUMIN 4.1 g/dL (3.5-5.0); ALKALINE PHOSPHATASE 82 U/L (32-104); BUN 21 mg/dL (8-22); CALCIUM 9.5 mg/dL (8.8-10.2); CHLORIDE 100 mmol/L (98-107); COSMO 278; CREATININE 1.1 mg/dL (0.5-0.9); ESTIMATED GFR 48; GLUCOSE 47 mg/dL (70-104); GOT 25 U/L (10-30); GPT 19 U/L (10-36); POTASSIUM 4.5 mmol/L (3.5-5.1); SODIUM 139 mmol/L (136-145); TCO2 24 mmol/L (25-35); TOTAL BILIRUBIN < 0.15 mg/dL (0.20-1.00); TOTAL PROTEIN 7.9 g/dL (6.3-8.3)
[2019-03-25 22:50] LABS: PTT 49.5 Seconds (22.3-41.8)
[2019-03-25 22:57] LABS: INR 11.52
[2019-03-25] MEDS ORDERED: VITAMIN K PO ONE (23:02)
--- NOTE | 2019-03-26 04:32 | HISTORY AND PHYSICAL ---
PRIMARY CARE PHYSICIAN: Dr. Che. CHIEF COMPLAINT: Abnormal labs. HISTORY OF PRESENTING ILLNESS: A 73-year-old female with a history of atrial fibrillation, diabetes mellitus type 2, GERD, hyperlipidemia and TIA, who had presented to the emergency department due to patient having abnormal labs. Apparently, her Home Health nurse took her blood and found that her INR was elevated. She was evaluated in the emergency department. She had repeat labs which did show INR of 11.52. Subsequently, she was given vitamin K and we will place her for observation for further evaluation and management. At the time of my examination, patient had denied any headache, fever, chills, chest pain, shortness of breath, hemoptysis or any weight changes. Just stated that her labs were abnormal. PAST MEDICAL HISTORY: Include diabetes mellitus type 2, GERD, hyperlipidemia, depression, TIA, atrial fibrillation. PAST SURGICAL HISTORY: Cholecystectomy, hysterectomy, left ankle surgery. ALLERGIES: Codeine. CURRENT MEDICATIONS: She does not recall and nursing staff will reconcile. SOCIAL HISTORY: No history of smoking, alcohol or illicit drug use. FAMILY HISTORY: Positive for coronary artery disease in mother. REVIEW OF SYSTEMS: Fourteen point review of systems as listed in HPI. Other systems negative. PHYSICAL EXAMINATION: GENERAL: Cooperative, friendly female. She is resting comfortably now. VITAL SIGNS: Temperature 98.0 degrees, pulse 57, respiration 18, blood pressure 128/66. HEENT: Atraumatic, normocephalic. Extraocular movements intact. PERRLA. NECK: Supple. CHEST: Clear to auscultation. CARDIOVASCULAR: Regular rate and rhythm. ABDOMEN: Soft. Positive bowel sounds. EXTREMITIES: No edema. NEUROLOGIC: She is awake, alert, oriented x3. GENITOURINARY: No bladder distention. SKIN: Warm. LABORATORIES AND STUDIES: WBCs 10.32, hemoglobin 12.7, hematocrit 38.2, platelets 364,000. INR is 11.52. Sodium 139, potassium 4.5, chloride 100, CO2 is 24, BUN is 21, creatinine is 1.1, glucose 47. ASSESSMENT: A 73-year-old female with a history of atrial fibrillation, diabetes mellitus type 2, gastroesophageal reflux disease, hyperlipidemia, who presented to emergency department due to abnormal labs. Apparently, she had an INR that was elevated. She was evaluated the emergency department. She had repeat labs that confirmed an INR of 11.42 and she was given vitamin K and she will be placed for observation for further management. 1. Supratherapeutic INR. 2. Atrial fibrillation. 3. Diabetes mellitus type 2. 4. Hyperlipidemia. PLAN: 1. We will admit patient to medical floor with telemetry. 2. We will monitor PT and INR closely. 3. We will hold her Coumadin for now. 4. Continue to monitor on telemetry. 5. Monitor blood glucose and put patient on sliding scale insulin regimen. 6. We will restart other home medications except Coumadin. 7. The patient is already anticoagulated. This will suffice for DVT prophylaxis. 8. We will continue to follow, reassess and make further recommendation based on patient's clinical course. cc: Andrew Arceo MD
[2019-03-26 07:11] LABS: INR 10.71; PROTIME 88.6 Seconds (11.0-16.0)
[2019-03-26] MEDS: LEXAPRO PO SCH (11:01)
[2019-03-26] MEDS: NEURONTIN PO SCH ×3 (11:02→21:30)
[2019-03-26] MEDS: VASOTEC PO SCH ×2 (11:02→21:30)
[2019-03-26] MEDS: PEPCID PO SCH (11:02)
[2019-03-26] MEDS: LOPRESSOR PO SCH ×2 (11:03→11:04)
[2019-03-26 14:32] LABS: URINE SOURCE CLEAN CATCH
[2019-03-26 14:36] LABS: BILIRUBIN URINE NEGATIVE (NEGATIVE); BLOOD URINE TRACE (NEGATIVE); COLOR YELLOW; GLUCOSE URINE NEGATIVE (NEGATIVE); KETONE URINE NEGATIVE (NEGATIVE); LEUKOCYTES URINE LARGE (NEGATIVE); NITRITE URINE NEGATIVE (NEGATIVE); PROTEIN URINE NEGATIVE (NEGATIVE); SP GRAVITY URINE 1.007; TURBIDITY URINE HAZY (CLEAR); UROBILINOGEN URINE NORMAL (NORMAL)
[2019-03-26 14:37] LABS: UR EPITHELIAL CELLS <10 /HPF (<10); URINE BACTERIA 2+ /HPF; URINE RBC <10 /HPF (<10); URINE WBC TNTC /HPF (<10)
[2019-03-26] MEDS: TYLENOL PO PRN (15:43)
[2019-03-26] MEDS ORDERED: ROCEPHIN 1 GM in NS 50 ML IV SCH (18:30)
[2019-03-26] MEDS ORDERED: LEVAQUIN 500 MG/D5W 500 MG/100 ML IVPB IV SCH (18:45)
--- NOTE | 2019-03-26 19:02 | PROGRESS NOTE ---
DATE: 03/26/2019 INTERVAL HISTORY: She was admitted for supratherapeutic INR. No acute events overnight. She denies any complaints. We had a long discussion about advantages and risks of Coumadin and we decided to have patient have discussion with her primary human resources mgr about continuing with or discontinuing Coumadin in the future. Currently, she denies any chest pain or shortness of breath. She denies abdominal pain, nausea, vomiting. She has not noticed any change in her stool color except it is brown. She also states that she has been having increased frequency of urination since the last 3 days. VITAL SIGNS: Current temperature 98.1 degrees, pulse 79, respiratory rate 19, blood pressure 120/50, saturating 98% room air. OBJECTIVE: General: Does not appear in acute distress. Oral cavity is moist. Lungs: Air entry bilaterally equal. No wheeze, rhonchi, crackles except bilateral infrascapular region where there is mild crackles. Cardiovascular: S1, S2 normal. Appears regular. Normal sinus rhythm. No murmur, rub, or gallop. Abdomen: Soft, nontender. Active bowel sounds. Extremity: No lower extremity edema. She is alert and oriented x3. LABORATORY DATA: Suggestive of normal hemoglobin. INR was 11.5 on presentation, which improved to 10.7. Her BUN is 21, creatinine of 1.1. Urine has pyuria. Urine culture is gram negative rods. ASSESSMENT AND PLAN: 1. Supratherapeutic INR in the setting of Coumadin status post oral vitamin K. Follow up INR tomorrow. If it continues to show downtrend, my plan will be to discharge her home with outpatient follow-up INR and have discussion with her primary human resources mgr about further dosing. 2. Atrial fib history of paroxysmal atrial fibrillation, currently rate controlled and normal sinus rhythm. 3. Suspected acute urethritis and acute cystitis. She previously had history of Escherichia coli and Enterococcus urinary tract infection. I will keep her on intravenous levofloxacin. 4. Others. Continue enalapril and metoprolol for history of atrial fibrillation, essential hypertension; citalopram for anxiety; gabapentin for neuropathic pain. DISPOSITION: Awaiting urine culture results. Even if it is not back empirically, I will treat her with levofloxacin. If INR is down trending, possibly discharge her tomorrow. Plan of care discussed with her. Her questions have been answered. She currently wanted to stay back overnight. cc: Mathieu Schuster MD [facility]
[2019-03-27] MEDS: TYLENOL PO PRN (00:58)
[2019-03-27 07:40] LABS: CALCIUM 8.6 mg/dL (8.8-10.2); CREATININE 1.1 mg/dL (0.5-0.9); POTASSIUM 5.3 mmol/L (3.5-5.1)
[2019-03-27 08:17] LABS: INR 3.16; PROTIME 33.4 Seconds (11.0-16.0)
[2019-03-27] MEDS ORDERED: LEVAQUIN PO SCH (09:00)
[2019-03-27] MEDS: LOPRESSOR PO SCH (09:02)
[2019-03-27] MEDS: PEPCID PO SCH (09:02)
[2019-03-27] MEDS: VASOTEC PO SCH (09:02)
[2019-03-27] MEDS: NEURONTIN PO SCH (09:02)
[2019-03-27] MEDS: LEXAPRO PO SCH (09:03)
[2019-03-27 11:36] VITALS: BP 127/64
--- NOTE | 2019-03-27 14:31 | DISCHARGE SUMMARY ---
ADMISSION DATE: 03/26/2019 DISCHARGE DATE: 03/27/2019 DISCHARGE DISPOSITION: Home. DISCHARGE CONDITION: Hemodynamically stable. Her urinary frequency has decreased. She has not noticed any overt signs of bleeding. Her INR is coming down. DISCHARGE DIAGNOSES: 1. Supratherapeutic INR in the setting of warfarin use. 2. Paroxysmal atrial fibrillation. 3. Acute cystourethritis due to gram-negative rods. OTHER DIAGNOSES: 1. History of paroxysmal atrial fibrillation. 2. Essential hypertension. 3. Anxiety. 4. Neuropathic pain. 5. Diabetes mellitus type 2. 6. Chronic gastroesophageal reflux disease. 7. Hyperlipidemia. 8. TIA. DISCHARGE MEDICATIONS: Famotidine 40 mg in the morning time, metformin extended release 850 mg t.i.d., escitalopram 20 mg in the morning, metoprolol 25 mg daily, gabapentin 300 mg t.i.d., ondansetron 4 mg as needed for nausea, levofloxacin 500 mg daily, 4 tablets have been prescribed. Enalapril 10 mg b.i.d. She was advised to have discussion with her regular doctor about resuming warfarin. DISCHARGE VITAL SIGNS: Temperature 97.8 degrees, pulse 53, respiratory 18, blood pressure 110/67, 98% on room air. PHYSICAL EXAMINATION: General: She does not appear in acute distress. HEENT: Oral cavity is moist. Lungs: Air entry bilaterally equal without wheeze or crackles, Cardiovascular: S1, S2 normal. No murmur. Abdomen: Soft, nontender. No lower extremity edema. Her heart rhythm is normal. Neurologic: She is alert and oriented x3. SIGNIFICANT LABORATORY DATA: During hospital admission and discharge. WBC 10.3, hemoglobin 12.7, platelet 360,000. Her INR was 11.5 on admission which improved to 3.1 at the time of discharge after oral vitamin K. Her potassium is 5.3, creatinine 1.1. MICROBIOLOGY: Urine culture is growing negative rods. Cardiovascular, no new imaging. On bedside monitor, she had normal sinus rhythm. HOSPITAL COURSE SUMMARY: Ms. Valiente is a 73-year-old lady with past medical history of paroxysmal atrial fibrillation, TIA on Coumadin, who was checked up on by her home health nurse for routine INR check and she was found to have INR more than 11, so she was advised to come to the emergency room. In the emergency room, she also complained of burning and increased frequency of urination. She was given oral vitamin K and considering the patient was supratherapeutic in INR, Hospitalist Team was requested to have admission for following up with INR. Patient was started on intravenous levofloxacin for suspected cystourethritis as well since previously she did have urine cultures growing Escherichia coli as well as Klebsiella, which were sensitive to levofloxacin, as well as Enterococcus faecalis. With vitamin K, 24 hours later, INR dropped to 3.1 and she was tolerating levofloxacin well, so she was discharged on levofloxacin. Risks versus benefits of anticoagulation were discussed with the patient and detailed discharge instructions were provided to her to have a repeat INR within 24 to 48 hours as well as calling her rubber compounder mixer to discuss about further Coumadin dosing and also discussed about alternate anticoagulation. TIME SPENT: More than 30 minutes were spent discharging this patient. cc: Mathieu Schuster MD MTDD
== END 2019-03-27 12:48 | disposition home health service (06) ==
LOC: 4N 21:13 → ED 21:13 → SUATTDRO 03-26 01:57
PROVIDERS: ATTEND Internal Medicine